=== PATIENT | male | born 1970 | race Caucasian/White ===

== ENCOUNTER 2021-03-14 22:53 | Emergency (ER) | payer MEDICARE ==
[2021-03-14 23:29] LABS: BASOPHIL 0.4 % (0-2); EOSINOPHIL 0.1 % (0-5); HGB 16.7 g/dl (13.2-18.0); LYMPHOCYTE 27.9 % (15-48); MCH 30.7 pg (25.0-31.0); MCHC 34.1 g/dL (32.0-36.0); MCV 90.1 fL (78.0-100.0); MONOCYTE 7.2 % (0-12); NEUTROPHIL 63.9 % (41-80); NRBC 0; PLT 188 K/uL (150-400); RBC 5.44 M/uL (4.70-6.00); RDW 13.2 % (11.5-14.0); WBC 7.7 K/uL (4.0-10.5)
[2021-03-14 23:44] LABS: LACTIC ACID 0.9 mmol/L (0.4-1.9)
[2021-03-14 23:45] LABS: ALBUMIN 3.3 g/dL (3.4-5.0); BILIRUBIN - TOTAL 0.6 mg/dL (0.2-1.0); CREATININE 0.81 mg/dL (0.67-1.17); GLOBULIN (CALCULATION) 4.1 g/dL; TOTAL PROTEIN 7.4 g/dL (6.4-8.2)
[2021-03-14 23:46] LABS: POTASSIUM 3.4 mmol/L (3.5-5.1)
[2021-03-15 01:53] LABS: BILIRUBIN NEGATIVE (NEGATIVE); BLOOD NEGATIVE Ery/uL (NEGATIVE); CLARITY CLEAR (CLEAR); COLOR YELLOW (YELLOW); GLUCOSE (U) NORMAL (NORMAL); LEUKOCYTES NEGATIVE Leu/uL (NEGATIVE); NITRITE NEGATIVE (NEGATIVE); PROTEIN NEGATIVE (NEGATIVE)
[2021-03-15] MEDS ORDERED: ZPAK PO (04:55)
[2021-03-15] MEDS ORDERED: ROBITUSSIN W/COD5 ML PO (04:55)
[2021-03-15] MEDS ORDERED: MELATONIN 5 MG1 EACH PO (04:55)
== END 2021-03-15 06:00 | disposition home or self-care (01) ==
LOC: FER 22:53
PROVIDERS: Emergency Medicine Emergency Medical Services
DX: U07.1 COVID-19 (principal); J12.82 Pneumonia due to coronavirus disease 2019; I10 Essential (primary) hypertension
CPT/HCPCS: 36415; 71045; 74018; 80053; 81003; 83605; 83690; 84484; 85025; 93005; J0696; J1100; J1885; J2405; J7120

== ENCOUNTER 2021-08-15 03:42 | Emergency (ER) | payer SELFPAY ==
[~2021-08-15 03:42] MED LIST: MELATONIN 5 MG1 EACH PO; ROBITUSSIN W/COD5 ML PO; ZPAK PO
[2021-08-15 05:09] LABS: HGB 16.4 g/dl (13.2-18.0); MCH 31.7 pg (25.0-31.0); MCHC 34.2 g/dL (32.0-36.0); MCV 92.7 fL (78.0-100.0); RBC 5.18 M/uL (4.70-6.00); RDW 13.6 % (11.5-14.0); WBC 9.2 K/uL (4.0-10.5)
[2021-08-15 06:12] LABS: BUN/CREAT RATIO (CALC) 8.2 RATIO; CREATININE 1.1 mg/dL (0.67-1.17); POTASSIUM 3.5 mmol/L (3.5-5.1)
[2021-08-15] MEDS ORDERED: NORVASC5 MG PO (06:23)
== END 2021-08-15 07:55 | disposition home or self-care (01) ==
LOC: FER 03:42
PROVIDERS: Emergency Medicine
DX: T78.3XXA Angioneurotic edema, initial encounter (principal); I10 Essential (primary) hypertension; F17.200 Nicotine dependence, unspecified, uncomplicated; Z20.822 Contact with and (suspected) exposure to COVID-19; Z79.899 Other long term (current) drug therapy
CPT/HCPCS: 36415; 80048; 99283; J0171; J7512; U0002

== ENCOUNTER 2021-11-27 03:37 | Emergency (ER) | payer SELFPAY ==
[~2021-11-27 03:37] MED LIST changes: +NORVASC5 MG PO
[2021-11-27] MEDS ORDERED: NORCO 5-325 TA1 EACH PO (04:34)
[2021-11-27] MEDS ORDERED: MOTRIN600 MG PO (04:34)
[2021-11-27] MEDS ORDERED: PREDNISONE 20MG20 MG PO (04:36)
[2021-11-27] MEDS ORDERED: EPIPEN 2-P0.3 MG/0.3 IM (04:52)
== END 2021-11-27 04:50 | disposition home or self-care (01) ==
LOC: FER 03:37
DX: L50.0 Allergic urticaria (principal); K08.89 Other specified disorders of teeth and supporting structures; I10 Essential (primary) hypertension; Z28.310 Unvaccinated for COVID-19
CPT/HCPCS: 96372